=== PATIENT | female | born 1970 ===

== ENCOUNTER 2023-03-07 13:15 | Emergency (ER) | payer SELFPAY ==
[2023-03-07] MEDS ORDERED: Sodium Chloride 0.9% 10 ML Syringe FLUSH PRN (13:46)
[2023-03-07 13:59] LABS: BASOPHILS PERCENT AUTO 0.3 % (0.0-1.0); EOSINOPHILS PERCENT AUTO 2.2 % (1.0-3.0); HEMATOCRIT 46.3 % (37.0-47.0); HEMOGLOBIN 14.8 g/dL (12.0-16.0); LYMPHOCYTES PERCENT AUTO 33.3 % (20.5-50.1); MEAN CORPUSCULAR HEMOGLOBIN 32.2 pg (27.0-34.0); MEAN CORPUSCULAR VOLUME 100.9 fL (80-100); MONOCYTES PERCENT AUTO 6.9 % (2-8); NEUTROPHILS PERCENT AUTO 57.3 % (42.2-75.2); PLATELET COUNT,PLT 195 10^3/uL (150-450); RED BLOOD CELL COUNT 4.59 10^6/uL (4.2-5.4); WHITE BLOOD CELL COUNT,WBC 6.8 10^3/uL (5.0-10.0)
[2023-03-07] MEDS: hydrALAZINE 20 MG/ML SDV IVPUSH ONE (14:15)
[2023-03-07 14:31] LABS: A/G RATIO 0.9; ALBUMIN 3.9 g/dL (3.4-5.0); ANION GAP 11.9 mEq/L (7-13); BILIRUBIN TOTAL 0.4 mg/dL (0.2-1.0); BUN/CREATININE RATIO 12.6 (No establ ref range); CALCIUM 8.8 mg/dL (8.5-10.1); CREATININE 1.27 mg/dL (0.55-1.02); EST CRCL DRUG DOSING (CG) 49.24 mL/min; MAGNESIUM 2.3 mg/dL (1.8-2.4); POTASSIUM,K 3.9 mmol/L (3.5-5.1); PROTEIN TOTAL,TP 8.1 g/dL (6.4-8.2)
[2023-03-07 14:59] LABS: APPEARANCE,URINE CLEAR (CLEAR); BILIRUBIN,URINE NEGATIVE (NEGATIVE); COLOR,URINE YELLOW (YELLOW); GLUCOSE,URINE NEGATIVE (NEGATIVE); KETONES,URINE NEGATIVE (NEGATIVE); LEUKOCYTE ESTERASE,URINE NEGATIVE (NEGATIVE); NITRITE,URINE NEGATIVE (NEGATIVE); OCCULT BLOOD,URINE NEGATIVE (NEGATIVE); PH,URINE 7.5 (5.0-9.0); PROTEIN,URINE NEGATIVE (NEGATIVE); UROBILINOGEN,URINE 0.2 mg/dL (0.2-1.0)
[2023-03-07 15:00] LABS: TSH ULTRASENSITIVE 98.85 uIU/mL (0.36-3.74)
[2023-03-07] MEDS: Levothyroxine 150 MCG Tab PO ONE (15:27)
[2023-03-07] MEDS: Sodium Chloride 0.9% 1,000 ML IV ONE (15:27)
[2023-03-07 15:46] LABS: CORONAVIRUS COVID-19 NAA NEGATIVE (NEGATIVE); INFLUENZA A NAA NEGATIVE (NEGATIVE); INFLUENZA B NAA NEGATIVE (NEGATIVE); RESPIRATORY SYNCYTIAL VIR NAA NEGATIVE (NEGATIVE)
== END 2023-03-07 16:40 | disposition home or self-care (01) ==
LOC: DL.ED 13:15
DX: E86.0 Dehydration (principal); E03.9 Hypothyroidism, unspecified; I10 Essential (primary) hypertension; J06.9 Acute upper respiratory infection, unspecified; Z20.822 Contact with and (suspected) exposure to COVID-19
CPT/HCPCS: 0241U; 36415; 70450; 71045; 80053; 81003; 83735; 84443; 84484; 85025; 93005; 93010; 96361; 96374; 99284; 99285-25; A9270-GY; J0360; J7030

== ENCOUNTER 2023-04-08 16:27 | Emergency (ER) | payer SELFPAY ==
[2023-04-08 17:28] LABS: BASOPHILS PERCENT AUTO 0.7 % (0.0-1.0); EOSINOPHILS PERCENT AUTO 0.9 % (1.0-3.0); HEMATOCRIT 37.6 % (37.0-47.0); HEMOGLOBIN 12.9 g/dL (12.0-16.0); LYMPHOCYTES PERCENT AUTO 31.8 % (20.5-50.1); MEAN CORPUSCULAR HGB CONC 34.3 g/dL (33.0-35.0); MEAN CORPUSCULAR VOLUME 99.2 fL (80-100); MONOCYTES PERCENT AUTO 6.6 % (2-8); PLATELET COUNT,PLT 210 10^3/uL (150-450); RED BLOOD CELL COUNT 3.79 10^6/uL (4.2-5.4); WHITE BLOOD CELL COUNT,WBC 6.7 10^3/uL (5.0-10.0)
[2023-04-08 17:49] LABS: LACTIC ACID 0.5 mmol/L (0.4-2.0)
[2023-04-08 17:54] LABS: PROTHROMBIN TIME 10.2 SEC (9.0-12.0); PTT,PARTIAL THROMBOPLSTIN TIME 29.2 SEC (22.0-34.0)
[2023-04-08 18:05] LABS: APPEARANCE,URINE CLEAR (CLEAR); BILIRUBIN,URINE NEGATIVE (NEGATIVE); COLOR,URINE YELLOW (YELLOW); GLUCOSE,URINE NEGATIVE (NEGATIVE); KETONES,URINE NEGATIVE (NEGATIVE); LEUKOCYTE ESTERASE,URINE SMALL (NEGATIVE); NITRITE,URINE NEGATIVE (NEGATIVE); OCCULT BLOOD,URINE TRACE-INTACT (NEGATIVE); PH,URINE 6.5 (5.0-9.0); PROTEIN,URINE NEGATIVE (NEGATIVE); UROBILINOGEN,URINE 0.2 mg/dL (0.2-1.0)
[2023-04-08 18:09] LABS: AMPHETAMINES,URINE NEGATIVE (NEGATIVE); BARBITURATES,URINE NEGATIVE (NEGATIVE); BENZODIAZEPINE,URINE NEGATIVE (NEGATIVE); MDMA (ECSTASY), URINE NEGATIVE (NEGATIVE); METHADONE,URINE NEGATIVE (NEGATIVE); METHAMPHETAMINES,URINE NEGATIVE (NEGATIVE); OPIATES,URINE NEGATIVE (NEGATIVE); OXYCODONE,URINE NEGATIVE (NEGATIVE); PHENCYCLIDINE,URINE NEGATIVE (NEGATIVE); TCA,URINE NEGATIVE (NEGATIVE)
[2023-04-08 18:13] LABS: B-TYPE NATRIURETIC PEPTIDE,BNP 9 pg/ml (0-100)
[2023-04-08 18:14] LABS: BACTERIA,URINE MODERATE /HPF (0-FEW/HPF); EPITHELIAL CELLS,URINE MANY /HPF (NOT SEEN); HYALINE CASTS,URINE FEW; MUCUS,URINE MODERATE /LPF (NOT SEEN); RBC,URINE 0-5 /HPF (0-5)
[2023-04-08 18:29] LABS: A/G RATIO 0.9; ALANINE AMINOTRANSFERASE,ALT 18 U/L (14-59); ALBUMIN 3.7 g/dL (3.4-5.0); ALKALINE PHOSPHATASE 60 U/L (46-116); ANION GAP 12.5 mEq/L (7-13); ASPARTATE AMNIOTRANSFERASE,AST 19 U/L (15-37); BILIRUBIN TOTAL 0.3 mg/dL (0.2-1.0); BLOOD UREA NITROGEN,BUN 21 mg/dL (7-18); BUN/CREATININE RATIO 18.1 (No establ ref range); CALCIUM 8.6 mg/dL (8.5-10.1); CARBON DIOXIDE,CO2 28 mmol/L (21-32); CHLORIDE,CL 104 mmol/L (98-107); CREATININE 1.16 mg/dL (0.55-1.02); EST CRCL DRUG DOSING (CG) 43.85 mL/min; ETHANOL BLOOD MEDICAL 3 mg/dL (0); GLUCOSE RANDOM 90 mg/dL (70-99); MAGNESIUM 2.1 mg/dL (1.8-2.4); POTASSIUM,K 3.5 mmol/L (3.5-5.1); PROTEIN TOTAL,TP 7.6 g/dL (6.4-8.2); SODIUM,NA 141 mmol/L (136-145); TSH ULTRASENSITIVE 5.44 uIU/mL (0.36-3.74)
[2023-04-08 18:32] LABS: ESTIMATED GFR 56 mL/min (>=60)
[2023-04-08 18:33] LABS: C-REACTIVE PROTEIN < 0.50 ng/dL (<=0.50)
[2023-04-08] MEDS: Ketorolac 30 MG/ML SDV IM ONE (19:08)
[2023-04-08] MEDS: cefTRIAXone 1 GM, Lidocaine 1% 2.1 ML IM ONE (19:08)
[2023-04-08 19:18] LABS: CORONAVIRUS COVID-19 NAA NEGATIVE (NEGATIVE); INFLUENZA A NAA NEGATIVE (NEGATIVE); INFLUENZA B NAA NEGATIVE (NEGATIVE); RESPIRATORY SYNCYTIAL VIR NAA NEGATIVE (NEGATIVE)
== END 2023-04-08 20:00 | disposition home or self-care (01) ==
LOC: DL.ED 16:27
DX: R94.6 Abnormal results of thyroid function studies (principal); I10 Essential (primary) hypertension; N30.01 Acute cystitis with hematuria
CPT/HCPCS: 0241U; 36415; 71045; 80053; 80305-QW; 80307; 81001; 82607; 83605; 83735; 83880; 84443; 84484; 85025; 85610; 85730; 86140; 87040; 87086; 93005; 93010; 96372; 99284; 99285; J0696; J1885; J3490

== ENCOUNTER 2023-09-06 19:25 | Emergency (ER) | payer OTHER ==
[2023-09-06] MEDS: Ketorolac 30 MG/ML SDV IM ONE (19:49)
[2023-09-06] MEDS: Acetaminophen 500 MG Tab PO ONE (19:50)
== END 2023-09-06 20:23 | disposition home or self-care (01) ==
LOC: DL.ED 19:25
DX: S50.12XA Contusion of left forearm, initial encounter (principal); S49.92XA Unspecified injury of left shoulder and upper arm, initial encounter; I10 Essential (primary) hypertension; F17.210 Nicotine dependence, cigarettes, uncomplicated; Z79.899 Other long term (current) drug therapy; V49.50XA Passenger injured in collision with unspecified motor vehicles in traffic accident, initial encounter; Y92.410 Unspecified street and highway as the place of occurrence of the external cause
CPT/HCPCS: 73030; 73090; 96372; 99284; A9270; J1885; 99283